=== PATIENT | male | born 1980 | race Caucasian/White ===

== ENCOUNTER 2018-01-31 11:15 | Emergency (ER) | payer OTHER ==
[~2018-01-31] VITALS: Ht 177.8 cm; Wt 83.9 kg
[~2018-01-31 11:15] MED LIST: ALBUTEROL2.5 MG/0.1; ASPIRIN EC81 M1 PO; ATIVAN1 MG PO; AUGMENTIN 875875 MG; BENTYL 10 MG CA10 M1 PO; BENTYL20 MG PO; CIPROFLOXACIN500 M3 PO; CITRATE OF MAG300 ML PO; DOXYCYCLINE 10100 MG PO; FLAGYL500 MG PO; HYDROCODONE-AP1 EAC6 PO; IBUPROFEN 400400 M2 PO; IBUPROFEN 800800 MG PO; MULTIVITAMINS PO; NICOTINE TRANSD14 M1; NOHOMEMEDICATIONS; NORCO 5-325 TA1 EACH PO; PERCOCET 5-3251 EACH; PHENADOZ12.5 MG RC; PHENERGAN; PHENERGAN 25 MG25 M1 PO; PHENERGAN12.5 M2 RECTAL; PRAVASTATIN SOD20 MG PO; PREDNISONE 20 M20 MG PO; PRILOSEC OTC20 MG PO; PROTONIX40 M1 PO; PROVENTIL HFA6.7 G1 INH; TUMS; VITAMIN B-1100 M1 PO; XANAX 0.25 MG0.25 MG; ZOFRAN ODT4 MG PO; ZOFRAN ODT4 MG SUBLING; ZOFRAN4 MG PO
[2018-01-31 11:48] LABS: HEMATOCRIT 46.3 % (42.0-52.0); HEMOGLOBIN 15.5 gm/dL (14.0-18.0); MCH 30.4 pg (26.0-34.0); MCHC 33.6 g/dL (28.0-37.0); MCV 90.5 fL (80.0-100.0); NUCLEATED RBCS 0 /100WBC; PLATELET COUNT* 247 thou/uL (150-400); RBC 5.12 mil/uL (4.50-6.00); RDW-CV 13.1 % (10.5-14.5); WBC 16.6 thou/uL (4.0-11.0)
[2018-01-31 11:55] LABS: CALCIUM 9.9 mg/dL (8.5-10.1); CREATININE 1.2 mg/dL (0.6-1.3); POTASSIUM 3.9 mmol/L (3.5-5.1)
[2018-01-31 11:59] LABS: ALBUMIN 4.5 g/dL (3.4-5.0); TOTAL BILIRUBIN 0.7 mg/dL (<0.1-1.0); TOTAL PROTEIN 8.1 g/dL (6.4-8.2)
[2018-01-31 12:14] LABS: URINE BILIRUBIN NEGATIVE (Negative); URINE BLOOD NEGATIVE (Negative); URINE CLARITY SL CLOUDY; URINE COLOR YELLOW; URINE GLUCOSE-RANDOM NEGATIVE (Negative); URINE KETONES 1+ (Negative); URINE LEUKOCYTES-REFLEX NEGATIVE (Negative); URINE NITRITE-REFLEX NEGATIVE (Negative); URINE PROTEIN 1+ (Negative); URINE SPECIFIC GRAVITY 1.015 (1.005-1.030); URINE UROBILINOGEN 0.2 E.U./dl (0.2-1.0)
[2018-01-31 12:23] LABS: AMP/METHAMP Negative (Negative); BARBITURATES Negative (Negative); BENZODIAZEPINES Negative (Negative); COCAINE Negative (Negative); METHADONE Negative (Negative); OPIATES Negative (Negative); PCP Negative (Negative); THC POSITIVE (Negative)
[2018-01-31 12:43] LABS: AMORPHOUS PHOSPHATES Moderate /LPF (None Seen); BACTERIA-REFLEX 1-9 Few /HPF (None Seen); CASTS None Seen /LPF (None Seen); SQUAMOUS 0-3 Few /LPF (0-3); URINE RBC 0-2 Rare /HPF (0-2); URINE WBC-REFLEX 0-5 Rare /HPF (0-5)
[2018-01-31 13:26] LABS: ABSOLUTE LYMPHOCYTES 1.2 thou/uL (0.8-5.3); ABSOLUTE MONOCYTES 0.7 thou/uL (0.0-1.2); ABSOLUTE NEUTROPHILS 14.8 thou/uL (1.6-8.1); PLATELET ESTIMATE ADEQUATE
[2018-01-31] MEDS ORDERED: BENTYL 20 MG TA20 M1 PO (14:33)
[2018-01-31] MEDS ORDERED: ZOFRAN ODT4 MG PO (14:33)
[2018-01-31] MEDS ORDERED: PROMS25 WY RECTAL (14:33)
[2018-01-31 15:06] VITALS: BP 140/81
== END 2018-01-31 15:07 | disposition home or self-care (01) ==
LOC: M.ERS 11:15
PROVIDERS: Nurse Practitioner Family
DX: G43.A0 Cyclical vomiting, in migraine, not intractable (principal); F17.210 Nicotine dependence, cigarettes, uncomplicated

== ENCOUNTER 2020-04-16 15:37 | Emergency (ER) | payer BC ==
[~2020-04-16] VITALS: Ht 177.8 cm; Wt 81.7 kg
[~2020-04-16 15:37] MED LIST changes: +BENTYL 20 MG TA20 M1 PO; +PROMS25 WY RECTAL
[2020-04-16 16:08] LABS: ABSOLUTE BASOPHILS 0.1 thou/uL (0.0-0.2); ABSOLUTE EOSINOPHILS 0.1 thou/uL (0.0-0.7); ABSOLUTE LYMPHOCYTES 2.1 thou/uL (0.8-5.3); ABSOLUTE MONOCYTES 0.8 thou/uL (0.0-1.2); ABSOLUTE NEUTROPHILS 4.6 thou/uL (1.6-8.1); BASOPHILS 1.3 %; EOSINOPHILS 1.7 %; HEMATOCRIT 44.1 % (42.0-52.0); HEMOGLOBIN 14.9 gm/dL (14.0-18.0); LYMPHOCYTES 26.7 %; MCH 30.7 pg (26.0-34.0); MCHC 33.8 g/dL (28.0-37.0); MCV 90.8 fL (80.0-100.0); MONOCYTES 10.3 %; MPV 8.2 fl. (7.2-11.1); NUCLEATED RBCS 0 /100WBC; PLATELET COUNT* 217 thou/uL (150-400); RBC 4.85 mil/uL (4.50-6.00); RDW-CV 13.9 % (10.5-14.5); WBC 7.7 thou/uL (4.0-11.0)
[2020-04-16 16:18] LABS: CALCIUM 8.9 mg/dL (8.5-10.1); POTASSIUM 3.7 mmol/L (3.5-5.1)
[2020-04-16 16:27] LABS: ALBUMIN 3.7 g/dL (3.4-5.0); MAGNESIUM 1.9 mg/dL (1.8-2.4); TOTAL BILIRUBIN 0.7 mg/dL (<0.1-1.0); TOTAL PROTEIN 6.8 g/dL (6.4-8.2)
[2020-04-16] MEDS ORDERED: NORCO 5-325 TA1 EAC2 PO (17:04)
[2020-04-16 17:25] VITALS: BP 140/93
--- NOTE | 2020-04-17 10:19 | EKG ---
[place] [address] ELECTROCARDIOGRAM REPORT Name: FLORES,GEOVANNY Kanchan Room: [facility]#: [id number] Admission: 04/16/20 Attend Phys: Discharge: 04/16/20 Date of : 76 Date of Service: 04/16/20 1546 Report #: [id number] THIS REPORT FOR: //name// [facility] ED Test Date: 2020-04-16 Test Time: 15:46:08 Pat Name: GEOVANNY FLORES Department: Room: Gender: [employer] Loader: [facility] : 1980 Requested By: Jared Akhtar Order Number: [id number] MD: Faraz Mazariegos Measurements Intervals [place] Rate: 74 P: 80 WV: 179 QRS: 4 QRSD: 87 T: 36 QT: 374 QTc: 415 Interpretive Statements Sinus rhythm Compared to ECG 06/29/2016 08:04:19 No significant changes Electronically Signed On 04-17-2020 10:19:29 CDT by Faraz Mazariegos [email or web address] <ELECTRONICALLY SIGNED> By: Faraz Mazariegos MD, [facility] 04/17/20 1019 1546 1546 Faraz Mazariegos MD, FACC /EPI
== END 2020-04-16 17:25 | disposition home or self-care (01) ==
LOC: M.ERS 15:37
PROVIDERS: Emergency Medicine Emergency Medical Services
DX: R07.89 Other chest pain (principal); F17.210 Nicotine dependence, cigarettes, uncomplicated; Z86.73 Personal history of transient ischemic attack (TIA), and cerebral infarction without residual deficits

== ENCOUNTER 2020-05-21 04:16 | Inpatient (IN) | payer BC ==
[~2020-05-21] VITALS: Ht 177.8 cm; Wt 82.1 kg
--- NOTE | ~2020-05-21 | CON ---
[address] [address] CONSULTATION Name: GEOVANNY FLORES Room: [address] .R.#: [id number] Admission: 05/21/20 Attend Phys: González Cardona Discharge: Date of : 76 Report #: [id number] THIS REPORT FOR: //name// cc: MERCEDES - No family physician/PCP FAM - No family physician/PCP ~ DATE OF SERVICE: 05/23/2020 HISTORY OF PRESENT ILLNESS: This is a pleasant 39-year-old male with past medical history significant for cyclic vomiting syndrome and depression, who is presenting for evaluation of persistent nausea and vomiting. The patient reports symptoms began 48 hours back. The patient reports he was in his office and had taken some coffee but 30 minutes later, he began having nausea and vomiting. The patient reports having about 40 episodes of vomiting in the last 2 days. He also reports abdominal pain located in the right upper quadrant. The patient reports the pain is localized and radiates to the back, especially to back of his right shoulder. The patient reports the pain is constant, but does get exacerbated with food. He denies any hematemesis, hematochezia or weight loss. This is similar to the patient's presentation 2 years back when he was seen by our GI service. PAST MEDICAL HISTORY: Depression, cyclic vomiting syndrome. PAST SURGICAL HISTORY: Nonsignificant. SOCIAL HISTORY: The patient has a history of smoking and marijuana use as well as recreational drug use. FAMILY HISTORY: No family history of colon cancer or GI malignancies. REVIEW OF SYSTEMS: A comprehensive 10-point review of systems is negative except for what was mentioned in the HPI. PHYSICAL EXAMINATION: VITAL SIGNS: Temperature 36.8, pulse rate 58, respirations 16, blood pressure 134/84, pulse ox 98%. GENERAL: The patient is alert, awake, oriented x 3. HEENT: Pupils are equal, round, reactive to light and accommodation. Mucous membranes are moist. There is no congestion. LUNGS: Clear to auscultation bilaterally. CARDIOVASCULAR: Rate and rhythm regular, S1, S2 present. ABDOMEN: Soft. Tenderness to palpation in the right upper quadrant region. EXTREMITIES: Warm, well perfused. There is no edema. LABORATORY DATA: Hemoglobin 13.2, hematocrit 38.8, platelet count 176, [place] [address] CONSULTATION Name: GEOVANNY FLORES Room: [address] [facility]#: [id number] Admission: 05/21/20 Attend Phys: González Cardona Discharge: Date of : 76 Report #: [id number] count 7.4. Sodium 134, potassium 3.6, chloride 103, bicarbonate 25, BUN 12, creatinine 0.9, total bilirubin 1.1, AST 19, ALT 23, alkaline phosphatase 31. Lipase on presentation 742. Urine drug screen positive for opiates, benzodiazepines and marijuana. IMAGING: Abdomen and pelvis CT, normal study. ASSESSMENT AND PLAN: Pleasant 39-year-old male with a past medical history known for cyclic vomiting syndrome, who is presenting for evaluation. I would recommend cessation of marijuana use and place the patient on nortriptyline 25 mg at bedtime for cyclic vomiting. I would recommend getting a PIPIDA scan for his right upper quadrant pain to rule out gallbladder dyskinesia. Thank you for this consultation. By: [id number] Dukes MD /nt
[~2020-05-21 04:16] MED LIST changes: +NORCO 5-325 TA1 EAC2 PO
[2020-05-21 04:27] VITALS: BP 109/82
[2020-05-21] MEDS ORDERED: LEXAPRO 10 MG T10 M2 PO (04:34)
[2020-05-21] MEDS ORDERED: ZOFRAN4 MG PO (04:34)
[2020-05-21] MEDS ORDERED: NEXIUM20 MG PO (04:34)
[2020-05-21 04:52] LABS: HEMOGLOBIN 16.6 gm/dL (14.0-18.0); MCH 30.6 pg (26.0-34.0); MCHC 33.8 g/dL (28.0-37.0); MCV 90.7 fL (80.0-100.0); MPV 8.5 fl. (7.2-11.1); NUCLEATED RBCS 0 /100WBC; PLATELET COUNT* 236 thou/uL (150-400); RDW-CV 14.1 % (10.5-14.5); WBC 12.4 thou/uL (4.0-11.0)
[2020-05-21 05:02] LABS: CALCIUM 9.3 mg/dL (8.5-10.1); CREATININE 1.3 mg/dL (0.6-1.3)
[2020-05-21 05:14] LABS: ALBUMIN 4.4 g/dL (3.4-5.0); MAGNESIUM 1.9 mg/dL (1.8-2.4); TOTAL BILIRUBIN 0.6 mg/dL (<0.1-1.0); TOTAL PROTEIN 8.1 g/dL (6.4-8.2)
[2020-05-21 05:34] LABS: ABSOLUTE LYMPHOCYTES 1.2 thou/uL (0.8-5.3); ABSOLUTE MONOCYTES 0.5 thou/uL (0.0-1.2); ABSOLUTE NEUTROPHILS 10.7 thou/uL (1.6-8.1)
[2020-05-21 05:35] LABS: ANISOCYTOSIS 1+; PLATELET ESTIMATE ADEQUATE; POIKILOCYTOSIS 1+
--- NOTE | 2020-05-21 07:50 | NUR ---
ANASTACIO NOTIFIED UPON PT RETURN FROM CT. PT CONNECTED TO BP AND PULSE OX MONITOR HE WAS PRIOR TO CT
[2020-05-21 08:34] LABS: AMP/METHAMP Negative (Negative); BARBITURATES Negative (Negative); BENZODIAZEPINES POSITIVE (Negative); COCAINE Negative (Negative); METHADONE Negative (Negative); OPIATES POSITIVE (Negative); PCP Negative (Negative); THC POSITIVE (Negative)
[2020-05-21 08:50] VITALS: BP 112/57
[2020-05-21 12:35] VITALS: BP 109/71
[2020-05-21 16:36] VITALS: BP 109/72
[2020-05-21 20:00] VITALS: BP 120/77
[2020-05-22] VITALS: BP 120/68
[2020-05-22 02:06] LABS: GLYCOHEMOGLOBIN (HGB A1C) 4.9 % (4.8-5.6)
[2020-05-22 04:00] VITALS: BP 114/71
[2020-05-22 04:00] LABS: CALCIUM 7.9 mg/dL (8.5-10.1); POTASSIUM 3.7 mmol/L (3.5-5.1); TOTAL BILIRUBIN 0.8 mg/dL (<0.1-1.0); TOTAL PROTEIN 5.5 g/dL (6.4-8.2)
[2020-05-22 04:27] LABS: HEMATOCRIT 41.3 % (42.0-52.0); MCH 30.9 pg (26.0-34.0); MCHC 33.5 g/dL (28.0-37.0); MCV 92.4 fL (80.0-100.0); MPV 8.9 fl. (7.2-11.1); RBC 4.47 mil/uL (4.50-6.00); RDW-CV 14.1 % (10.5-14.5); WBC 8.8 thou/uL (4.0-11.0)
[2020-05-22 05:02] LABS: HEMOGLOBIN 13.8 gm/dL (14.0-18.0)
--- NOTE | 2020-05-22 06:54 | NUR ---
ASSESSMENTS COMPLETED AT BEDSIDE, PLEASE REFER TO CHARTING FOR DETAILS. MEDICATIONS ADMINISTERED PER MAR. HOURLY ROUNDING FOR PT SAFETY. FALL PRECATIONS IN PLACE. CALL LIGHT WITHIN REACH.
[2020-05-22 08:00] VITALS: BP 128/91
[2020-05-22 11:00] VITALS: BP 129/88
--- NOTE | 2020-05-22 12:42 | NUR ---
Pt is A&O. Resides at home. Independent. No DME. No hx of HH or SNF. Goal is home at dc. Continue to work on nausea control. Anticipate dc tomorrow, no needs.
[2020-05-22 16:00] VITALS: BP 132/80
[2020-05-22 20:00] VITALS: BP 123/82
[2020-05-23] VITALS: BP 123/81
[2020-05-23 04:00] VITALS: BP 129/92
[2020-05-23 04:20] LABS: HEMATOCRIT 38.8 % (42.0-52.0); HEMOGLOBIN 13.2 gm/dL (14.0-18.0); MCH 30.9 pg (26.0-34.0); MCHC 34.1 g/dL (28.0-37.0); MCV 90.6 fL (80.0-100.0); MPV 8.8 fl. (7.2-11.1); RBC 4.28 mil/uL (4.50-6.00); RDW-CV 13.9 % (10.5-14.5); WBC 7.4 thou/uL (4.0-11.0)
[2020-05-23 04:44] LABS: ALBUMIN 2.9 g/dL (3.4-5.0); CALCIUM 7.6 mg/dL (8.5-10.1); CREATININE 0.9 mg/dL (0.6-1.3); MAGNESIUM 1.9 mg/dL (1.8-2.4); POTASSIUM 3.6 mmol/L (3.5-5.1); TOTAL BILIRUBIN 1.1 mg/dL (<0.1-1.0); TOTAL PROTEIN 5.3 g/dL (6.4-8.2)
--- NOTE | 2020-05-23 07:15 | NUR ---
CHANGE OF SHIFT REPORT GIVEN PATIENT LUCILA AT BEDSIDE, IN BED WATCHING TV ASSUMED PATIENT CARE
[2020-05-23] MEDS ORDERED: BENTYL 20 MG TA20 M1 PO (07:28)
[2020-05-23] MEDS ORDERED: TRANSDERM-SCOP1 EACH TRANSDERM (07:28)
[2020-05-23] MEDS ORDERED: TRAMADOL 50 MG50 MG PO (07:28)
[2020-05-23] MEDS ORDERED: LORAZEPAM 0.50.5 MG PO (07:28)
[2020-05-23 08:00] VITALS: BP 136/84
[2020-05-23 11:00] VITALS: BP 136/84
[2020-05-23 16:00] VITALS: BP 134/77
[2020-05-23 20:00] VITALS: BP 116/74
[2020-05-24] VITALS: BP 112/72
[2020-05-24 04:00] VITALS: BP 105/66
[2020-05-24] MEDS ORDERED: NORTRIPTYLINE H10 M1 PO (07:47)
[2020-05-24 07:53] VITALS: BP 105/66
[2020-05-24 08:38] VITALS: BP 120/83
--- NOTE | 2020-05-24 11:02 | NUR ---
PT IS ALERT AND ORIENTED X4 UP AD GUCCI NO QUESTIONS OR CONCERNS AT THIS TIME NO S/SX OF WITHDRAWAL IV AND MONITOR DC'D NO N/V THIS AM ATE A REGULAR DIET THIS AM WITHOUT ANY ISSUES MEDS SENT TO PHARMACY ABOUT TO DO DC EDUCATION AND PT WILL LEAVE
== END 2020-05-24 11:24 | disposition home or self-care (01) | DRG 440 ==
LOC: M.ERS 04:16 → M.TBA-ER 05:31 → M.2W 09:08
PROVIDERS: Emergency Medicine; Internal Medicine; ADMIT Internal Medicine; ATTEND Internal Medicine
DX: K85.90 Acute pancreatitis without necrosis or infection, unspecified (principal); E86.0 Dehydration; F32.9 Major depressive disorder, single episode, unspecified; R11.15 Cyclical vomiting syndrome unrelated to migraine; Z20.828 Contact with and (suspected) exposure to other viral communicable diseases; F17.210 Nicotine dependence, cigarettes, uncomplicated; Z86.73 Personal history of transient ischemic attack (TIA), and cerebral infarction without residual deficits; Z79.899 Other long term (current) drug therapy